=== PATIENT | female | born 1995 | race Caucasian/White ===

== ENCOUNTER 2019-04-22 23:29 | Emergency (ER) | payer BC, SELFPAY ==
[2019-04-22] MEDS ORDERED: SMZ./TMP. 800/160 MG TABLET ONE (23:52)
--- NOTE | 2019-04-22 23:56 | ER ---
Nurse's Notes [facility] Name: Gladis Sena Age: 23 yrs Sex: Female : 1995 Arrival Date: 04/22/2019 Time: 23:33 Bed 5 Private MD: Diagnosis: Conjunctivitis;Periorbital cellulitis Presentation: 04/22 23:51 Presenting complaint: Patient states: I woke up and notice that my L eye was swollen tr5 with some gooey boogers in it. Transition of care: patient was not received from another setting of care. Onset of symptoms was April 22, 2019. Risk Assessment: Do you want to hurt yourself or someone else? Patient reports no desire to harm self or others. Initial Sepsis Screen: Does the patient meet any 2 criteria? No. Patient's initial sepsis screen is negative. Does the patient have a suspected source of infection? No. Patient's initial sepsis screen is negative. Care prior to arrival: None. 23:51 Method Of Arrival: Ambulatory tr5 23:51 Acuity: MARY 4 tr5 Historical: - Allergies: 23:53 No Known Allergies; tr5 - Home Meds: 23:53 None [Active]; tr5 - PMHx: 23:53 None; tr5 - PSHx: 23:53 None; tr5 - Immunization history:: Adult Immunizations up to date. - Social history:: Smoking status: Patient/guardian denies using tobacco, never smoked. - Ebola Screening: : No symptoms or risks identified at this time. - Family history:: not pertinent. - Hospitalizations: : No recent hospitalization is reported. Screenin:55 Abuse screen: Denies threats or abuse. Denies injuries from another. Nutritional rr5 screening: No deficits noted. Tuberculosis screening: No symptoms or risk factors identified. Fall Risk None identified. Total Berrios Fall Scale indicates No Risk (0-24 pts). Assessment: 23:51 General: Appears in no apparent distress. comfortable, Behavior is calm, cooperative, rr5 appropriate for age. 23:51 Pain: Complains of pain in left eye Pain does not radiate. Pain Quality of pain is rr5 described as aching, Pain began gradually, Is intermittent. Neuro: Level of Consciousness is awake, alert, obeys commands, Oriented to person, place, time, situation, Appropriate for age. Cardiovascular: Capillary refill < 3 seconds Patient's skin is warm and dry. Respiratory: Airway is patent Respiratory effort is even, unlabored, Respiratory pattern is regular, symmetrical. GI: No signs and/or symptoms were reported involving the gastrointestinal system. : No signs and/or symptoms were reported regarding the genitourinary system. EENT: Eyes teary and redness left eye. Sclera/Cornea are reddened in outer aspect of conjuctiva of left eye and inner aspect of conjunctiva of left eye. Derm: Skin is intact, Skin temperature is warm. Musculoskeletal: Circulation, motion, and sensation intact. Capillary refill < 3 seconds. 04/23 00:03 Reassessment: Patient appears in no apparent distress at this time. Patient is alert, rr5 oriented x 3, equal unlabored respirations, skin warm/dry/pink. discharge instruction given and explained without complaints made. Vital Signs: 04/22 23:53 BP 128 / 76; Pulse 76; Resp 16; Temp 98.5(O); Pulse Ox 100% on R/A; tr5 ED Course: 23:33 Patient arrived in ED. cf2 23:40 Shad Robles MD is Attending Physician. rn 23:47 Parvez Mcknight, ELVIS is Primary Nurse. rr5 23:52 Triage completed. tr5 23:53 Arm band placed on. tr5 23:55 Patient has correct armband on for positive identification. rr5 23:55 No provider procedures requiring assistance completed. rr5 04/23 00:03 Patient did not have IV access during this emergency room visit. rr5 Administered Medications: 04/22 23:53 Drug: Bactrim (160 mg-800 mg (DS) 1 tablet Route: PO; rr5 04/23 00:04 Follow up: Response: Medication administered at discharge. rr5 Outcome: 04/22 23:56 Discharge ordered by . rn 04/23 00:03 Discharged to home ambulatory, with family. rr5 Condition: stable Discharge instructions given to patient, Instructed on discharge instructions, follow up and referral plans. medication usage, Demonstrated understanding of instructions, follow-up care, medications, Prescriptions given X 2. 00:04 Patient left the ED. rr5 Signatures: Shad Robles MD MD rn Roque, Raymond RN RN rr5 Henry Stubbs RN RN tr5 Pranav Lockett cf2
--- NOTE | 2019-04-22 23:57 | EDPHYS ---
Physician Documentation [facility] Name: Gladis Sena Age: 23 yrs Sex: Female : 1995 Arrival Date: 04/22/2019 Time: 23:33 Bed 5 Private MD: ED Physician Shad Robles HPI: 04/22 23:50 This 23 yrs old Female presents to ER via Unassigned with complaints of Eye rn Swelling. 23:50 The patient is experiencing matting or discharge, redness, tearing, The patient rn sustained None. to the left eye, caused by an unknown mechanism. Onset: The symptoms/episode began/occurred yesterday. Duration: the symptoms are continuous. Aggravated by blinking, rubbing. Patient wears glasses, wears soft contacts. Severity of symptoms: At their worst the symptoms were mild in the emergency department the symptoms are unchanged. The patient has not experienced similar symptoms in the past. Reports noticed burning to left eye yesterday with slow progression to drainage and matting, no trauma, was wearing contacts, took them out. No eye pain with movement, noticed mild swelling around left eye. No fever. . Historical: - Allergies: 23:53 No Known Allergies; tr5 - Home Meds: 23:53 None [Active]; tr5 - PMHx: 23:53 None; tr5 - PSHx: 23:53 None; tr5 - Immunization history:: Adult Immunizations up to date. - Social history:: Smoking status: Patient/guardian denies using tobacco, never smoked. - Ebola Screening: : No symptoms or risks identified at this time. - Family history:: not pertinent. - Hospitalizations: : No recent hospitalization is reported. ROS: 23:50 Constitutional: Negative for fever, chills, and weight loss, Eyes: + left eye drainage rn and tearing ENT: Negative for injury, pain, and discharge, Neuro: Negative for headache, weakness, numbness, tingling, and seizure. Exam: 23:50 Visual Acuity: Visual acuity is within normal limits. with glasses on. rn 23:50 Constitutional: This is a well developed, well nourished patient who is awake, alert, and in no acute distress. Head/Face: Normocephalic, atraumatic. Eyes: + mild left periorbital edema without discoloration, + conjunctival injection with upper and lower eyelid edema, PERRL, no evidence of trauma or foreign body, no hyphema or hypopyon. + mild scleral injection. Vital Signs: 23:53 BP 128 / 76; Pulse 76; Resp 16; Temp 98.5(O); Pulse Ox 100% on R/A; tr5 MDM: 23:40 Patient medically screened. rn 23:50 Differential diagnosis: Data reviewed: vital signs, nurses notes, and as a result, I rn will discharge patient. Counseling: I had a detailed discussion with the patient and/or guardian regarding: the historical points, exam findings, and any diagnostic results supporting the discharge/admit diagnosis, the need for outpatient follow up, to return to the emergency department if symptoms worsen or persist or if there are any questions or concerns that arise at home. Special discussion: I discussed with the patient/guardian in detail that at this point there is no indication for admission to the hospital. It is understood, however, that if the symptoms persist or worsen the patient needs to return immediately for re-evaluation. Based on the history and exam findings, there is no indication for further emergent testing or inpatient evaluation. I discussed with the patient/guardian the need to see the opthamologist for further evaluation of the symptoms. Administered Medications: 23:53 Drug: Bactrim (160 mg-800 mg (DS) 1 tablet Route: PO; rr5 04/23 00:04 Follow up: Response: Medication administered at discharge. rr5 Disposition: 04/22/19 23:56 Discharged to Home. Impression: Conjunctivitis, Periorbital cellulitis. - Condition is Stable. - Discharge Instructions: Bacterial Conjunctivitis, Viral Conjunctivitis. - Prescriptions for Vigamox 0.5 % Ophthalmic Drops - instill 1 drop by OPHTHALMIC route every 8 hours for 7 days; 5 milliliter. Bactrim DS 800- 160 mg Oral Tablet - take 1 tablet by ORAL route every 12 hours for 10 days; 20 tablet. - Medication Reconciliation Form, Thank You Letter, Antibiotic Education, Prescription Opioid Use form. - Follow up: Private Physician; When: As needed; Reason: Recheck today's complaints, Re-evaluation by your physician. - Problem is new. - Symptoms are unchanged. Signatures: Shad Robles MD MD rn Roque, Raymond, RN RN rr5 Henry Stubbs RN RN tr5 Corrections: (The following items were deleted from the chart) 00:04 04/22 23:56 04/22/2019 23:56 Discharged to Home. Impression: Conjunctivitis; rr5 Periorbital cellulitis. Condition is Stable. Forms are Medication Reconciliation Form, Thank You Letter, Antibiotic Education, Prescription Opioid Use. Follow up: Private Physician; When: As needed; Reason: Recheck today's complaints, Re-evaluation by your physician. Problem is new. Symptoms are unchanged. rn
[2019-04-23 01:13] VITALS: BP 128/76; TEMP 98.5; O2SAT 100
== END 2019-04-23 00:04 | disposition home or self-care (01) ==
LOC: ER 23:29
DX: L03.213 Periorbital cellulitis (principal); H10.9 Unspecified conjunctivitis
CPT/HCPCS: 99283

== ENCOUNTER 2021-12-29 19:31 | Emergency (ER) | payer OTHER, SELFPAY ==
--- OUTSIDE RECORDS SUMMARY | 2021-12-29 19:34 | XMS REPORT | Continuity of Care Document ---
:1995 Author Organization [facility] t Address [address] [place] [address] Care Team Providers Name Role Phone Jaye Espitia Primary Care Physician [email or web address] Attending Clinician Unavailable Kali Conroy Attending Clinician [phone] Jaye Espitia Attending Clinician GC_Bridget_G Admitting Clinician Unavailable Payers Payer Name Policy Type Policy Number Effective Date Expiration Date S jelani [facility] [id number] 2021 COMMUNITY PLAN-AR - 00:00:00 [facility] (MEDICAID REPLACEMENT - HMO) [facility] [id number] 2021 [facility] - 00:00:00 [facility] (MEDICAID HMO) Problems Condition Condition Condition Status Onset Resolution Last Treating Co mments Source Name Details Category Date Date Treatment Clinician Date Rubella Rubella Disease Active Overview: Univ ers non-immune non-immune 10-28 Formattin ity of status, status, 00:00: g of this [place] antepartum antepartum 00 note Me dical might be Branch different from the original. Address pp Susceptibl Susceptibl Disease Active Overview : Univers e to e to 18 Formattin ity of varicella varicella 00:00: g of this [place] (non-immun (non-immun 00 note Me dical e), e), might be Branch currently currently different from the original. Address pp Supervisio Supervisio Disease Active 2022-0 U nivers n of n of 4-15 ity of high-risk high-risk 00:00: Zita lehman 00 [facility] Obesity in Obesity in Disease Active 2021-0 U nivers 4-15 ity of 00:00: [place] [address] [facility] [place] Knee pain, Knee pain, Disease Active 2015-0 U nivers left left 4-08 ity of 00:00: [place] [address] [facility] [place] Allergies, Adverse Reactions, Alerts This patient has no known allergies or adverse reactions. Social History Social Habit Start Date Stop Date Quantity Comments Source ASSERTION 2021-10-02 University 00:00:00 [facility] History of Smoker [facility] tobacco use [facility] Exposure to 2021-09-25 2021-10-25 Not sure [facility] SARS-CoV-2 00:00:00 09:19:00 [facility] (event) [place] Tobacco use and 2021-10-25 2021-10-25 Never used Universit y of exposure 00:00:00 00:00:00 [facility] Alcohol intake 2021-10-25 2021-10-25 Ex-drinker [facility] 00:00:00 00:00:00 (finding) [facility] Sex Assigned At [birth year] Universit y of 00:00:00 00:00:00 [facility] Smoking Status Start Date Stop Date Source Former smoker 2021-10-25 00:00:00 2021-10-25 00:00:00 [facility] Medications Ordered Filled Start Stop Current Ordering Indication Dosage Frequency Signature Comments Components Source Medication Medication Date Date Medication? Clinician (SIG) Name Name Yes Take by Unive rs vit 4-15 mouth. ity of no.124/iron 09:26: [place] /folic 34 Medical ( Branch VITAMIN ORAL) IBUPROFEN Yes Take by Univ ers ORAL 4-15 mouth. ity of 09:26: [address] Immunizations Ordered Immunization Filled Immunization Date Status Commen ts Source Name Name H1n1 Vaccine 2009-06-20 Completed University o f 00:00:00 [facility] Meningococcal 2009-03-23 Completed University of Vaccine 00:00:00 [facility] TDAP 2009-03-23 Completed University of 00:00:00 [facility] Varicella 2009-03-23 Completed University of (varivax)(chicken 00:00:00 [place] M edical pox) Branch DTAP 2000-08-04 Completed University of 00:00:00 [facility] MMR 2000-08-04 Completed University of 00:00:00 [facility] Polio (IPV/OPV) 2000-08-04 Completed Universit y of 00:00:00 [facility] DTAP 1998-02-01 Completed University of 00:00:00 [facility] HIB 4 Dose Schedule 1998-02-01 Completed Unive rsity of 00:00:00 [facility] MMR 1998-02-01 Completed University of 00:00:00 [facility] Varicella 1998-02-01 Completed University of (varivax)(chicken 00:00:00 [facility] edical pox) Branch Hep B, Adol or Pedi 1997-04-12 Completed Unive rsity of Dosage 00:00:00 [facility] Polio (IPV/OPV) 1997-04-12 Completed Universit y of 00:00:00 [facility] DTaP/HIB 1997-04-12 Completed University of 00:00:00 [facility] Hep B, Adol or Pedi 1997-02-07 Completed Unive rsity of Dosage 00:00:00 [facility] Polio (IPV/OPV) 1997-02-07 Completed Universit y of 00:00:00 [facility] DTaP/HIB 1997-02-07 Completed University of 00:00:00 [facility] Polio (IPV/OPV) 1995 Completed Universit y of 00:00:00 [facility] DTaP/HIB 1995 Completed University of 00:00:00 [facility] Hep B, Adol or Pedi 1995 Completed Unive rsity of Dosage 00:00:00 [facility] Procedures This patient has no known procedures. Encounters Start End Encounter Admission Attending Care Care Encounter Source Date/Time Date/Time Type Type Clinicians Facility Department ID 2021-12-17 2021-12-17 Outpatient GC_[facility]_ PRIV PRIV [id number] [facility] 11:49:00 11:49:00 Sayra [id number] [facility] 2021-12-16 2021-12-16 Outpatient GC_[facility]_ PRIV PRIV [id number] [facility] 03:37:00 03:37:00 Rafiq_G [id number] [facility] varsha 2021-12-16 2021-12-16 Outpatient Conroy, PRIV PRIV [id number] 00:00:00 00:00:00 Román [id number] Kali [id number] 2021-12-10 2021-12-10 Outpatient GC_[facility]_ PRIV PRIV [id number] [facility] 08:58:00 08:58:00 Shelton_G [id number] [facility] varsha 2021-12-10 2021-12-10 Outpatient GC_[facility]_ PRIV PRIV [id number] [facility] 08:58:00 08:58:00 Shelton_G [id number] [facility] var[facility] 2021-11-26 2021-11-26 Outpatient GC_[facility]_ PRIV PRIV [id number] [facility] 11:07:00 11:07:00 Shelton_G [id number] [facility] 2021-11-18 2021-11-18 Outpatient GC_[facility]_ PRIV PRIV [id number] [facility] 02:24:00 02:24:00 Shelton_G [id number] [facility] 2021-11-18 2021-11-18 Outpatient Conroy, PRIV PRIV [id number] 00:00:00 00:00:00 Román [id number] Kali [id number] 2021-11-15 2021-11-15 Outpatient GC_[facility]_ PRIV PRIV [id number] [facility] 10:20:00 10:20:00 Shelton_G [id number] [facility] varsha 2021-11-12 2021-11-12 Outpatient GC_[facility]_ PRIV PRIV [id number] [facility] 10:13:00 10:13:00 Shel[place]_G [id number] [facility] varsha 2021-11-11 2021-11-11 Outpatient GC_[facility]_ PRIV PRIV [id number] [facility] 12:36:00 12:36:00 Shelton_G [id number] [facility] 2021-11-08 2021-11-08 [facility] [id number] Univers 00:00:00 00:00:00 Mai 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
[2021-12-29 20:16] LABS: Urine Blood Negative (Negative); Urine Glucose Negative (Negative); Urine Protein Negative (Negative); Urine Specific Gravity 1.025 (1.005-1.030)
[2021-12-29 20:19] LABS: Absolute Lymphocytes (CBC) 2.3 K/uL (0.7-4.9); Lymphocytes % 19.9 % (15.3-44.8); MPV 7.7 fL (7.6-11.3)
[2021-12-29] MEDS ORDERED: ONDANSETRON 4 MG/2 ML VIAL ONE (20:24)
[2021-12-29] MEDS ORDERED: NA CHLORIDE 0.9% 1,000 ML ONE ×2 (20:25→21:36)
[2021-12-29 20:35] LABS: Albumin 3.3 g/dL (3.4-5.0); Bilirubin Total 0.2 mg/dL (0.2-1.0); Potassium 3.9 mmol/L (3.5-5.1); Protein, Total 6.9 g/dL (6.4-8.2)
[2021-12-29 20:50] LABS: Urine Bacteria <20 /HPF (<20); Urine RBC NONE SEEN /HPF (NONE SEEN)
[2021-12-29 21:51] LABS: Urine Specific Gravity/Preg 1.025 (1.005-1.030)
--- NOTE | 2021-12-29 22:08 | ER ---
Nurse's Notes [facility] Name: Gladis Schumacher Age: 26 yrs Sex: Female : 1995 Arrival Date: 12/29/2021 Time: 19:34 Bed 6 Private MD: Diagnosis: Vomiting of , unspecified Presentation: 12/29 19:41 Chief complaint: Patient states: I have been having N/V, dizziness, feeling light jb4 headed, and had a headache for the past 48 hours. I cannot keep anything down. I am also 14 weeks . Coronavirus screen: At this time, the client does not indicate any symptoms associated with coronavirus-19. Ebola Screen: No symptoms or risks identified at this time. Initial Sepsis Screen: Does the patient meet any 2 criteria? HR > 90 bpm. Yes Does the patient have a suspected source of infection? No. Patient's initial sepsis screen is negative. Risk Assessment: Do you want to hurt yourself or someone else? Patient reports no desire to harm self or others. Onset of symptoms was December 29, 2021. Transition of care: patient was not received from another setting of care. 19:41 Method Of Arrival: Ambulatory jb4 19:41 Acuity: MARY 3 jb4 Triage Assessment: 20:31 General: Appears in no apparent distress. Behavior is calm, cooperative. Pain: Denies kd3 pain. GI: Reports nausea. 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 - Social history:: Smoking status: Patient/guardian denies using tobacco, Stopped _ months ago 6 Patient/guardian denies using alcohol. Screenin:17 Abuse screen: Denies threats or abuse. Denies injuries from another. Nutritional kd3 screening: No deficits noted. Tuberculosis screening: No symptoms or risk factors identified. Fall Risk IV access (20 points). Assessment: 20:17 GI: Abdomen is non-distended, obese. kd3 Vital Signs: 19:41 BP 142 / 88; Pulse 97; Resp 18; Temp 97.1(TE); Pulse Ox 100% on R/A; Weight 151.95 kg jb4 (R); Height 5 ft. 11 in. (180.34 cm) (R); Pain 8/10; 21:00 BP 116 / 73; Pulse 72; Resp 18 S; Pulse Ox 99% on R/A; as6 22:09 BP 123 / 65; Pulse 75; Resp 18 S; Pulse Ox 100% on R/A; as6 19:41 Body Mass Index 46.72 (151.95 kg, 180.34 cm) jb4 ED Course: 19:34 Patient arrived in ED. ja2 19:35 Camila Gregg, ELVIS is Primary Nurse. kd3 19:41 Joseph Davis NP is PHCP. pm1 19:41 Shad Robles MD is Attending Physician. pm1 19:43 Triage completed. jb4 19:43 Arm band placed on right wrist. jb4 20:17 Patient has correct armband on for positive identification. Placed in gown. Bed in low kd3 position. 20:17 Inserted saline lock: 20 gauge in right antecubital area, using aseptic technique. kd3 Blood collected. 20:31 No provider procedures requiring assistance completed. kd3 22:10 IV discontinued, intact, bleeding controlled, No redness/swelling at site. Pressure as6 dressing applied. Administered Medications: 20:30 Drug: NS 0.9% 1000 ml Route: IV; Rate: 1 bolus; Site: right antecubital; kd3 22:11 Follow up: Response: No adverse reaction; IV Status: Completed infusion; IV Intake: as6 1000ml 20:30 Drug: Zofran (Ondansetron) 4 mg Route: IVP; Site: right antecubital; kd3 22:11 Follow up: Response: No adverse reaction as6 21:45 Drug: NS 0.9% 1000 ml Route: IV; Rate: 1000 ml; Site: right antecubital; kd3 22:12 Follow up: Response: No adverse reaction; IV Status: Completed infusion; IV Intake: as6 1000ml Medication: 20:31 VIS not applicable for this client. kd3 Intake: 22:11 IV: 1000ml; Total: 1000ml. as6 22:12 IV: 1000ml; Total: 2000ml. as6 Outcome: 22:07 Discharge ordered by . pm1 22:10 Discharged to home ambulatory, with significant other. as6 22:10 Condition: stable 22:10 Discharge instructions given to patient, Instructed on discharge instructions, follow up and referral plans. Demonstrated understanding of instructions, follow-up care. 22:13 Instructed on medication usage, Demonstrated understanding of medications, as6 Prescriptions given X 1. 22:17 Patient left the ED. kd3 Signatures: Joseph Davis NP MINIATURE SET CONSTRUCTOR pm1 Emmett Denise RN RN jb4 Dolly Jama Ashby, ELVIS RN as6 Camila Gregg RN RN kd3
--- NOTE | 2021-12-29 22:08 | EDPHYS ---
Physician Documentation [facility] Name: Gladis Schumacher Age: 26 yrs Sex: Female : 1995 Arrival Date: 12/29/2021 Time: 19:34 Bed 6 Private MD: ED Physician Shad Robles HPI: 12/29 19:58 This 26 yrs old Female presents to ER via Ambulatory with complaints of pm1 Nausea/Vomiting, Dizziness. 19:58 The patient presents to the emergency department with nausea, vomiting. Onset: The pm1 symptoms/episode began/occurred today. Possible causes: . The symptoms are aggravated by food , The symptoms are alleviated by nothing. Associated signs and symptoms: Pertinent negatives: abdominal pain, fever. The patient has experienced similar episodes in the past, a few times. The patient has been recently seen by a physician: 2 week(s) ago, for apparently unrelated complaints, U/S with obsetrician. DINING HOST: 19:43 currently jb4 Historical: - Allergies: 19:43 No Known Allergies; jb4 - Home Meds: 19:43 None [Active]; jb4 - PMHx: 19:43 None; jb4 - PSHx: 19:43 knee and foot surgery; jb4 - Immunization history:: Adult Immunizations up to date. - Social history:: Smoking status: Patient/guardian denies using tobacco, Stopped _ months ago 6 Patient/guardian denies using alcohol. ROS: 19:58 Constitutional: Negative for fever, chills, and weight loss, Cardiovascular: Negative pm1 for chest pain, palpitations, and edema, Respiratory: Negative for shortness of breath, cough, wheezing, and pleuritic chest pain. 19:58 Back: Negative for injury and pain, : Negative for injury, bleeding, discharge, and swelling, MS/Extremity: Negative for injury and deformity, Skin: Negative for injury, rash, and discoloration, Neuro: Negative for headache, weakness, numbness, tingling, and seizure. 19:58 Abdomen/GI: Positive for nausea and vomiting, Negative for abdominal pain, diarrhea. 19:58 All other systems are negative. Exam: 19:58 Constitutional: This is a well developed, well nourished patient who is awake, alert, pm1 and in no acute distress. Head/Face: Normocephalic, atraumatic. 19:58 Back: No spinal tenderness. No costovertebral tenderness. Full range of motion. Skin: Warm, dry with normal turgor. Normal color with no rashes, no lesions, and no evidence of cellulitis. MS/ Extremity: Pulses equal, no cyanosis. Neurovascular intact. Full, normal range of motion. 19:58 Cardiovascular: Exam negative for acute changes, Rate: normal, Rhythm: regular, Pulses: no pulse deficits are appreciated. 19:58 Respiratory: Exam negative for acute changes, respiratory distress, shortness of breath. 19:58 Abdomen/GI: Exam negative for acute changes, Palpation: abdomen is soft and non-tender, in all quadrants. 19:58 Neuro: Exam negative for acute changes, Orientation: is normal, Mentation: is normal, Motor: is normal, moves all fours. Vital Signs: 19:41 BP 142 / 88; Pulse 97; Resp 18; Temp 97.1(TE); Pulse Ox 100% on R/A; Weight 151.95 kg jb4 (R); Height 5 ft. 11 in. (180.34 cm) (R); Pain 8/10; 21:00 BP 116 / 73; Pulse 72; Resp 18 S; Pulse Ox 99% on R/A; as6 22:09 BP 123 / 65; Pulse 75; Resp 18 S; Pulse Ox 100% on R/A; as6 19:41 Body Mass Index 46.72 (151.95 kg, 180.34 cm) jb4 MDM: 19:49 Patient medically screened. pm1 21:24 Data reviewed: vital signs. Data interpreted: Pulse oximetry: on room air is 100 %. pm1 Interpretation: normal. 22:07 Counseling: I had a detailed discussion with the patient and/or guardian regarding: the pm1 historical points, exam findings, and any diagnostic results supporting the discharge/admit diagnosis, lab results, the need for outpatient follow up, to return to the emergency department if symptoms worsen or persist or if there are any questions or concerns that arise at home. 12/29 19:58 Order name: CBC with Diff; Complete Time: 20:49 pm1 12/29 19:58 Order name: CMP; Complete Time: 20:49 pm1 12/29 19:58 Order name: Urine Microscopic Only; Complete Time: 20:55 pm1 12/29 20:16 Order name: Urine --Ancillary (enter results); Complete Time: 22:07 jb4 12/29 20:16 Order name: Urine Dipstick-Ancillary; Complete Time: 20:49 EDMS 12/29 19:58 Order name: IV Saline Lock; Complete Time: 20:16 pm1 12/29 19:58 Order name: Labs collected and sent; Complete Time: 20:16 pm1 12/29 19:58 Order name: Urine Dipstick-Ancillary (obtain specimen); Complete Time: 20:16 pm1 12/29 19:58 Order name: Urine Test (obtain specimen); Complete Time: 20:16 pm1 12/29 19:58 Order name: FHT's; Complete Time: 21:21 pm1 Administered Medications: 20:30 Drug: NS 0.9% 1000 ml Route: IV; Rate: 1 bolus; Site: right antecubital; kd3 22:11 Follow up: Response: No adverse reaction; IV Status: Completed infusion; IV Intake: as6 1000ml 20:30 Drug: Zofran (Ondansetron) 4 mg Route: IVP; Site: right antecubital; kd3 22:11 Follow up: Response: No adverse reaction as6 21:45 Drug: NS 0.9% 1000 ml Route: IV; Rate: 1000 ml; Site: right antecubital; kd3 22:12 Follow up: Response: No adverse reaction; IV Status: Completed infusion; IV Intake: as6 1000ml Disposition: 12/30 01:52 Co-signature as Attending Physician, Shad Robles MD. rn Disposition Summary: 12/29/21 22:07 Discharge Ordered Location: Home pm1 Problem: new pm1 Symptoms: have improved pm1 Condition: Stable pm1 Diagnosis - Vomiting of , unspecified pm1 Followup: pm1 - With: Emergency Department - When: As needed - Reason: Worsening of condition Followup: pm1 - With: Private Physician - When: 2 - 3 days - Reason: Recheck today's complaints, Continuance of care, Re-evaluation by your physician Discharge Instructions: - Discharge Summary Sheet pm1 - Nausea and Vomiting, Adult pm1 Forms: - Medication Reconciliation Form pm1 - Thank You Letter pm1 - Antibiotic Education pm1 - Prescription Opioid Use pm1 Prescriptions: - ondansetron 4 mg Oral tablet,disintegrating - place 1 tablet by TRANSLINGUAL route every 8 hours As needed; 12 tablet; pm1 Refills: 0, Product Selection Permitted Signatures: Dispatcher [employer] EDShad Castanon MD MD rn Marinas, Patrick, [employer] SU[employer] pm1 Emmett Denise RN RN jb4 Camila Gregg RN RN kd3 Rich Kinney RN as6
[2021-12-29 22:31] VITALS: TEMP 97.1
[2021-12-29 22:34] VITALS: BP 123/65; O2SAT 100
== END 2021-12-29 22:17 | disposition home or self-care (01) ==
LOC: ER 19:31
DX: O21.9 Vomiting of pregnancy, unspecified (principal); Z3A.14 14 weeks gestation of pregnancy
CPT/HCPCS: 85025; 36415; 81025; 80053; J7030 ×2; J2405; 81003; 81015